=== PATIENT | male | born 1940 | race Caucasian/White ===

== ENCOUNTER 2016-08-30 14:55 | Inpatient (IN) | payer MEDICARE ==
[2016-08-30] VITALS (9 sets, daily range): BP systolic 129–166; BP diastolic 64–95; PULSE 83–97; RESP 18–20; TEMP 97.3–98.4; O2SAT 94–96
[~2016-08-30] VITALS: Ht 175.3 cm; Wt 72.8 kg
[~2016-08-30 14:55] MED LIST: METO50TA PO; PRED20 PO; Z.0.NO CURRENT MEDS
[2016-08-30] MEDS ORDERED: FISH1200 PO (15:27)
[2016-08-30] MEDS ORDERED: METO50TA PO (15:27)
[2016-08-30] MEDS ORDERED: SUDA30TA2 PO (15:27)
[2016-08-30] MEDS ORDERED: AZIT250T3 PO (15:27)
[2016-08-30] MEDS ORDERED: LOVA40TA PO (15:27)
[2016-08-30] MEDS ORDERED: ASPI1TAB69 PO (15:27)
[2016-08-30] MEDS ORDERED: PLAV75TA29 PO (15:27)
[2016-08-30] MEDS ORDERED: PROMSYP6 PO (15:27)
--- NOTE | 2016-08-30 15:54 | PD ---
HPI Chief Complaint: Cold / Flu Symptoms Time Seen by Provider: 15:47 Travel History International Travel<30 days: No Contact w/Intl Traveler<30days: No Traveled to known affect area: No History of Present Illness HPI This 76-year-old male presents with complaint of cough and generalized weakness. He says he been sick since Saturday. He went to see his doctor on that day because of complaint of cough. He was diagnosed with sinusitis and put on Zithromax. He still coughing and is bringing up some phlegm. He has been extremely weak. According to his daughter has not gotten off the couch for a couple of days. He thinks she's been having intermittent fever. He continues to cough and has dyspnea on exertion. He stopped smoking 20 years ago. He has never been diagnosed with COPD or emphysema. He has no history of heart disease. He is on Plavix because he has been found to have a blood clot in his neck by Dr. Rodriguez. He says he had presented with syncope PFSH Past Medical History Arthritis: No Autoimmune Disease: No Blood Disorders: No Cancer: No Cardiovascular Problems: Yes (CLOT IN NECK) High Cholesterol: Yes Chemotherapy: No Cerebrovascular Accident: No Diminished Hearing: No Endocrine: No Genitourinary: Yes Headaches: No Hypertension: Yes Immune Disorder: No Musculoskeletal: No Neurologic: No Psychiatric: No Reproductive: No Respiratory: No Immunizations Current: Yes Migraines: No Radiation Therapy: No Seizures: No Influenza Vaccination: No ?: Not Past Surgical History Abdominal Surgery: No AICD: No Arteriovenous Shunt: No Cardiac Surgery: No Ear Surgery: No Endocrine Surgery: No Eye Surgery: No Genitourinary Surgery: No Gynecologic Surgery: No Insulin Pump: No Oral Surgery: No Pacemaker: No Prostatectomy: Yes (2005) Thoracic Surgery: No Other Surgery: Yes Social History Alcohol Use: Yes (SOCIALLY) Tobacco Use: No Substance Use: No Allergies-Medications (Allergen,Severity, Reaction): Coded Allergies: No Known Allergies (Verified , 08/30/16) Reported Meds & Prescriptions Reported Meds & Active Scripts Active Reported Sudafed (Pseudoephedrine HCl) 30 Mg Tab 30 Mg PO Q6H PRN Promethazine VC-Codeine Liq (Msxaqarda-Qspmkazndicc-Wioamay Liq) 6.25-5-10 mg/ 5Ml Syp 1 Oz PO HS Fish Oil 1200 mg ([address]-3 Fatty Acids) 1 Cap Cap 1,200 Mg PO DAILY Aspirin 81 Mg Tabdr 81 Mg PO DAILY Plavix (Clopidogrel Bisulfate) 75 Mg Tab 75 Mg PO DAILY Lovastatin 40 Mg Tab 40 Mg PO DAILY Metoprolol Tartrate 50 Mg Tab 50 Mg PO BID Review of Systems General / Constitutional: Positive: Fever, Chills Eyes: No: Diploplia, Blurred Vision HENT: No: Headaches, Vertigo Cardiovascular: No: Chest Pain or Discomfort, Palpitations Respiratory: Positive: Cough, Shortness of Breath, No: Hemoptysis Gastrointestinal: No: Vomiting, Diarrhea Genitourinary: No: Urgency, Frequency, Dysuria Musculoskeletal: No: Myalgias, Arthralgias Skin: No Rash, No Itching Neurologic: Positive: Weakness, No: Syncope, Focal Abnormalities Hematologic/Lymphatic: No: Easy Bruising Physical Exam Narrative GENERAL: Well-developed male SKIN: Focused skin assessment warm/dry. HEAD: Atraumatic. Normocephalic. EYES: Pupils equal and round. No scleral icterus. No injection or drainage. ENT: No nasal bleeding or discharge. Mucous membranes pink and moist. NECK: Trachea midline. No JVD. CARDIOVASCULAR: Regular rate and rhythm. No murmur appreciated. RESPIRATORY: No accessory muscle use. He has scattered rhonchi. GASTROINTESTINAL: Abdomen soft, non-tender, nondistended. Hepatic and splenic margins not palpable. MUSCULOSKELETAL: No obvious deformities. No clubbing. No cyanosis. No edema. NEUROLOGICAL: Awake and alert. No obvious cranial nerve deficits. Motor grossly within normal limits. Normal speech. PSYCHIATRIC: Appropriate mood and affect; insight and judgment normal. Data Data Last Documented VS Vital Signs Date Time Temp Pulse Resp B/P Pulse Ox O2 Delivery O2 Flow Rate FiO2 08/30/16 16:19 90 18 166/89 94 Room Air 08/30/16 15:03 97.9 Orders Complete Blood Count With Diff (08/30/16 15:49) Comprehensive Metabolic Panel (08/30/16 15:49) Chest, Pa & Lat (08/30/16 15:49) Blood Culture (08/30/16 16:46) Ct Thorax/ Chest W Iv Contrast (08/30/16 16:46) Levofloxacin 750 Mg Premix Inj (Levaquin (08/30/16 17:00) Admit Order (Ed Use Only) (08/30/16 17:18) Labs Laboratory Tests Test 08/30/16 15:55 White Blood Count 10.8 TH/MM3 Red Blood Count 4.95 MIL/MM3 Hemoglobin 14.2 GM/DL Hematocrit 42.9 % Mean Corpuscular Volume 86.7 FL Mean Corpuscular Hemoglobin 28.7 PG Mean Corpuscular Hemoglobin 33.0 % Concent Red Cell Distribution Width 12.5 % Platelet Count 251 TH/MM3 Mean Platelet Volume 8.0 FL Neutrophils (%) (Auto) 70.3 % Lymphocytes (%) (Auto) 13.4 % Monocytes (%) (Auto) 11.4 % Eosinophils (%) (Auto) 4.2 % Basophils (%) (Auto) 0.7 % Neutrophils # (Auto) 7.6 TH/MM3 Lymphocytes # (Auto) 1.4 TH/MM3 Monocytes # (Auto) 1.2 TH/MM3 Eosinophils # (Auto) 0.5 TH/MM3 Basophils # (Auto) 0.1 TH/MM3 CBC Comment DIFF FINAL Differential Comment Sodium Level 137 MEQ/L Potassium Level 3.8 MEQ/L Chloride Level 100 MEQ/L Carbon Dioxide Level 26.7 MEQ/L Anion Gap 10 MEQ/L Blood Urea Nitrogen 23 MG/DL Creatinine 1.10 MG/DL Estimat Glomerular Filtration 65 ML/MIN Rate Random Glucose 100 MG/DL Calcium Level 9.7 MG/DL Total Bilirubin 0.4 MG/DL Aspartate Amino Transf 22 U/L (AST/SGOT) Alanine Aminotransferase 37 U/L (ALT/SGPT) Alkaline Phosphatase 112 U/L Total Protein 8.1 GM/DL Albumin 3.0 GM/DL [facility] Medical Decision Making Medical Screen Exam Complete: Yes Emergency Medical Condition: Yes Medical Record Reviewed: Yes Differential Diagnosis Differential includes bronchitis, pneumonia, influenza, Narrative Course Chest x-ray shows an area of right-sided consolidation. White count is 10,000. This gentleman has been on antibiotics 4 days without improvement. He has failed outpatient treatment. He will be admitted. CT scan shows moderate- sized area of right lung consolidation with minimal left lung ground glass opacity. There is a 3 cm right lobe thyroid nodule. There are coronary artery calcifications. There is mild to moderate upper lobe emphysema. Blebs are seen Diagnosis Primary Impression: Pneumonia Admitting Information Admitting Physician Requests: Admit Jese Jean MD Aug 30, 2016 15:54
[2016-08-30 16:13] LABS: AUTOMATED NEUTROPHIL # 7.6 TH/MM3 (1.8-7.7); BASOPHIL # 0.1 TH/MM3 (0-0.2); BASOPHIL % 0.7 % (0.0-2.0); EOSINOPHIL # 0.5 TH/MM3 (0-0.4); EOSINOPHIL % 4.2 % (0.0-4.0); HEMATOCRIT 42.9 % (39.0-51.0); LYMPH % 13.4 % (9.0-44.0); LYMPHOCYTE # 1.4 TH/MM3 (1.0-4.8); MEAN CELL VOLUME 86.7 FL (80.0-100.0); MEAN CORPUSCULAR HEMOGLOBIN 28.7 PG (27.0-34.0); MONO % 11.4 % (0.0-8.0); NEUT % 70.3 % (16.0-70.0); PLATELET COUNT 251 TH/MM3 (150-450); RED BLOOD COUNT 4.95 MIL/MM3 (4.50-5.90); RED CELL DISTRIBUTION WIDTH 12.5 % (11.6-17.2); WHITE BLOOD COUNT 10.8 TH/MM3 (4.0-11.0)
--- NOTE | 2016-08-30 16:14 | RADHPO ---
EXAM DATE/TIME: 08/30/2016 15:57 [facility] COMPARISON: No previous studies available for comparison. INDICATIONS : Cough. MEDICAL HISTORY : None. SURGICAL HISTORY : None. ENCOUNTER: Initial ACUITY: 1 week PAIN SCORE: 2/10 LOCATION: Bilateral chest FINDINGS: PA and lateral views of the chest. Confluent right posterior midlung pulmonary parenchymal opacity. L eft lung clear. Cardiomediastinal silhouette within normal limits. No evidence of pleural effusion or pneumothorax. Possible pneumomediastinum in the retrosternal region. CONCLUSION: 1. Superior segment right lower lobe pulmonary consolidation. Recommend radiographic followup to reso lution. 2. Possible pneumomediastinum anteriorly on the lateral view. Red Marinelli MD on August 30, 2016 at 16:09 Board Certified Radiologist. This report was verified electronically.
[2016-08-30 16:21] LABS: CHLORIDE 100 MEQ/L (98-107); POTASSIUM 3.8 MEQ/L (3.5-5.1); SODIUM (NA) 137 MEQ/L (136-145)
[2016-08-30 16:25] LABS: ANION GAP 10 MEQ/L (5-15); BICARBONATE 26.7 MEQ/L (21.0-32.0)
[2016-08-30 16:26] LABS: BLOOD UREA NITROGEN 23 MG/DL (7-18)
[2016-08-30 16:28] LABS: ALT (GPT) 37 U/L (12-78); AST (GOT) 22 U/L (15-37)
[2016-08-30 16:29] LABS: GLOMERULAR FILTRATION RATE 65 ML/MIN (>89)
[2016-08-30 16:30] LABS: TOTAL BILIRUBIN ADULT 0.4 MG/DL (0.2-1.0)
[2016-08-30 16:31] LABS: ALKALINE PHOSPHATASE 112 U/L (45-117)
[2016-08-30 16:39] LABS: HEMO FLAGS DIFF FINAL
[2016-08-30] MEDS ORDERED: LEVOFLOXACIN 750 MG PREMIX INJ 150 ML IV ONE (17:00)
[2016-08-30] MEDS ORDERED: PSEUDOEPHEDRINE HCL 30 MG TAB PO PRN (17:30)
[2016-08-30] MEDS ORDERED: IOHEXOL 350 MG/ML 10 ML VIAL (for RAD DIAG) IV ONE (17:37)
--- NOTE | 2016-08-30 17:40 | HHI.HP ---
HPI Service [facility] Hospitalists Primary Care Physician Brenden Martin MD Admission Diagnosis PNEUMONIA Chief Complaint: cough congestion for 1 week Travel History International Travel<30 Days: No Contact w/Intl Traveler <30 Da: No Traveled to Known Affected Are: No History of Present Illness This 76-year-old male presents with complaint of cough and generalized weakness. He says he been sick since Saturday. He went to see his doctor on that day because of complaint of cough. He was diagnosed with sinusitis and put on Zithromax. He still coughing and is bringing up some phlegm. He has been extremely weak. According to his daughter has not gotten off the couch for a couple of days. He thinks she's been having intermittent fever. He continues to cough and has dyspnea on exertion. He stopped smoking 20 years ago. He has never been diagnosed with COPD or emphysema. He has no history of heart disease. He is on Plavix because he has been found to have a blood clot in his neck by neurology. In er found to have rt sided pneumonia,failed outpatient treatment. Review of Systems Respiratory: COMPLAINS OF: Cough, Sputum production, Shortness of breath Past Family Social History Past Medical History htn,carotid disease Past Surgical History prostate surgery Reported Medications Sudafed (Pseudoephedrine HCl) 30 Mg Tab 30 Mg PO Q6H PRN Promethazine VC-Codeine Liq (Knxyfyusi-Enkrevqsrgln-Rtiqxqn Liq) 6.25-5-10 mg/ 5Ml Syp 1 Oz PO HS Azithromycin 250 Mg Tab 250 Mg PO DIRECTED Take 2 tabs (500 mg) on day 1 then 1 tab daily x 4 days. Fish Oil 1200 mg ([place]-3 Fatty Acids) 1 Cap Cap 1,200 Mg PO DAILY Aspirin 81 Mg Tabdr 81 Mg PO DAILY Plavix (Clopidogrel Bisulfate) 75 Mg Tab 75 Mg PO DAILY Lovastatin 40 Mg Tab 40 Mg PO DAILY Metoprolol Tartrate 50 Mg Tab 50 Mg PO BID Allergies: Coded Allergies: No Known Allergies (Verified , 08/30/16) Social History occasion etoh former smoker over 20 years ago Physical Exam Vital Signs Vital Signs Date Time Temp Pulse Resp B/P Pulse Ox O2 Delivery O2 Flow Rate FiO2 08/30/16 16:19 90 18 166/89 94 Room Air 08/30/16 15:03 97.9 84 18 155/89 94 Physical Exam GENERAL: This is a well-nourished, well-developed patient, in no apparent distress. SKIN: No rashes, ecchymoses or lesions. Cool and dry. HEAD: Atraumatic. Normocephalic. No temporal or scalp tenderness. EYES: Pupils equal round and reactive. Extraocular motions intact. No scleral icterus. No injection or drainage. ENT: Nose without bleeding, purulent drainage or septal hematoma. Throat without erythema, tonsillar hypertrophy or exudate. Uvula midline. Airway patent. NECK: Trachea midline. No JVD or lymphadenopathy. Supple, nontender, no meningeal signs. CARDIOVASCULAR: Regular rate and rhythm without murmurs, gallops, or rubs. RESPIRATORY: Clear to auscultation. Breath sounds decrease rt side. No wheezes, rales, or rhonchi. GASTROINTESTINAL: Abdomen soft, non-tender, nondistended. No hepato-splenomegaly , or palpable masses. No guarding. MUSCULOSKELETAL: Extremities without clubbing, cyanosis, or edema. No joint tenderness, effusion, or edema noted. No calf tenderness. Negative Homans sign bilaterally. NEUROLOGICAL: Awake and alert. Cranial nerves II through XII intact. Motor and sensory grossly within normal limits. Five out of 5 muscle strength in all muscle groups. Normal speech. Laboratory Laboratory Tests Test 08/30/16 15:55 White Blood Count 10.8 Red Blood Count 4.95 Hemoglobin 14.2 Hematocrit 42.9 Mean Corpuscular Volume 86.7 Mean Corpuscular Hemoglobin 28.7 Mean Corpuscular Hemoglobin 33.0 Concent Red Cell Distribution Width 12.5 Platelet Count 251 Mean Platelet Volume 8.0 Neutrophils (%) (Auto) 70.3 Lymphocytes (%) (Auto) 13.4 Monocytes (%) (Auto) 11.4 Eosinophils (%) (Auto) 4.2 Basophils (%) (Auto) 0.7 Neutrophils # (Auto) 7.6 Lymphocytes # (Auto) 1.4 Monocytes # (Auto) 1.2 Eosinophils # (Auto) 0.5 Basophils # (Auto) 0.1 CBC Comment DIFF FINAL Differential Comment Sodium Level 137 Potassium Level 3.8 Chloride Level 100 Carbon Dioxide Level 26.7 Anion Gap 10 Blood Urea Nitrogen 23 Creatinine 1.10 Estimat Glomerular Filtration 65 Rate Random Glucose 100 Calcium Level 9.7 Total Bilirubin 0.4 Aspartate Amino Transf 22 (AST/SGOT) Alanine Aminotransferase 37 (ALT/SGPT) Alkaline Phosphatase 112 Total Protein 8.1 Albumin 3.0 Date/Time Procedure Status Source Growth 08/30/16 16:55 Aerobic Blood Culture Received Blood Peripheral Pending 08/30/16 16:55 Anaerobic Blood Culture Received Blood Peripheral Pending Result Diagram: 08/30/16 1555 08/30/16 1555 Imaging Last 24 hours Impressions Chest X-Ray 08/30/16 1549 Signed Impressions: Service Date/Time: August 15:57 - CONCLUSION: 1. Superior segment right lower lobe pulmonary consolidation. Recommend radiographic followup to resolution. 2. Possible pneumomediastinum anteriorly on the lateral view. Red Marinelli MD Course in er started on levaquin Assessment and Plan Problem List: (1) Pneumonia Status: Acute Plan: continue levaquin IV await CT thorax ?pneumomediastinum Assessment and Plan continue home meds further plan as case progresses Code Status full Discussed Condition With patient Physician Certification 2 Midnight Certification Type: Admission for Inpatient Services Order for Inpatient Services The services are ordered in accordance with Medicare regulations or non- Medicare payer requirements, as applicable. In the case of services not specified as inpatient-only, they are appropriately provided as inpatient services in accordance with the 2-midnight benchmark. Estimated LOS (days): 3 3 days is the estimated time the patient will need to remain in the hospital, assuming treatment plan goals are met and no additional complications. Post-Hospital Plan: Not yet determined Robb Carr MD Aug 30, 2016 17:40
--- NOTE | 2016-08-30 17:43 | RADHPO ---
EXAM DATE/TIME: 08/30/2016 17:04 [facility] COMPARISON: CHEST PA & LAT, August 30, 2016, 15:57. INDICATIONS : Superior segment right lower lobe pulmonary consolidation. IV CONTRAST: 75 cc Omnipaque 350 (iohexol) IV RADIATION DOSE: 9.47 CTDIvol (mGy) MEDICAL HISTORY : Hypertension. SURGICAL HISTORY : None. ENCOUNTER: Initial ACUITY: 1 day PAIN SCALE: 3/10 LOCATION: Bilateral chest TECHNIQUE: Volumetric scanning of the chest was performed. Using automated exposure control and adjustment of t he mA and/or kV according to patient size, radiation dose was kept as low as reasonably achievable to obtain optimal diagnostic quality images. FINDINGS: LUNGS: Moderate-sized area of pulmonary consolidation with air bronchograms in the posterior aspect of the r ight upper lobe. Mild patchy consolidation in the superior segment of the right lower lobe. Minimal g roundglass opacity in the midlung on the left. Mild to moderate upper lobe predominant bilateral pulm onary emphysematous findings. PLEURA: There is no pleural thickening or pleural effusion. MEDIASTINUM: 3.4 cm right lobe inferior pole thyroid nodule. Multiple scattered approximately 1 cm mediastinal lym ph nodes likely reactive. Coronary artery calcifications. Thoracic aorta is calcified but within norm al limits in diameter. AXILLAE: Within normal limits. No lymphadenopathy. SKELETAL: Within normal limits for patient age. MISCELLANEOUS: The visualized upper abdominal organs demonstrate no acute abnormality. CONCLUSION: 1. Moderate-sized area of right lung consolidation. Minimal left lung groundglass opacity. 2. 3 cm right lobe thyroid nodule. 3. Coronary artery calcifications. 4. Mild to moderate upper lobe predominant pulmonary emphysema. Red Marinelli MD on August 30, 2016 at 17:37 Board Certified Radiologist. This report was verified electronically.
[2016-08-30] MEDS ORDERED: SODIUM CHLORIDE 0.9% FLUSH 10 ML FLUSH IV FLUSH PRN (17:45)
[2016-08-30] MEDS ORDERED: NALOXONE HCL 0.4 MG/ML AMP IV PRN (17:45)
[2016-08-30] MEDS ORDERED: BISACODYL 10 MG SUPP RECTAL PRN (17:45)
[2016-08-30] MEDS: METOPROLOL TARTRATE 50 MG TAB PO SCH (21:18)
[2016-08-30] MEDS: PROMETHAZINE/CODEINE 6.25 MG/10 MG/5 ML CUP PO SCH (21:18)
[2016-08-30] MEDS: SODIUM CHLORIDE 0.9% FLUSH 10 ML FLUSH IV FLUSH SCH (21:27)
[2016-08-31] VITALS (8 sets, daily range): BP systolic 115–152; BP diastolic 74–80; PULSE 71–83; RESP 18–20; TEMP 96.9–98.9; O2SAT 91–96
[2016-08-31 07:06] LABS: AUTOMATED NEUTROPHIL # 6.4 TH/MM3 (1.8-7.7); BASOPHIL % 0.3 % (0.0-2.0); EOSINOPHIL # 0.4 TH/MM3 (0-0.4); EOSINOPHIL % 3.8 % (0.0-4.0); HEMATOCRIT 41.3 % (39.0-51.0); HEMO FLAGS DIFF FINAL; LYMPH % 14.9 % (9.0-44.0); LYMPHOCYTE # 1.4 TH/MM3 (1.0-4.8); MEAN CELL VOLUME 87.6 FL (80.0-100.0); MEAN CORPUSCULAR HEMOGLOBIN 29.2 PG (27.0-34.0); MEAN CORPUSCULAR HGB CONC 33.3 % (32.0-36.0); MONO % 12.3 % (0.0-8.0); NEUT % 68.7 % (16.0-70.0); PLATELET COUNT 246 TH/MM3 (150-450); RED BLOOD COUNT 4.71 MIL/MM3 (4.50-5.90); RED CELL DISTRIBUTION WIDTH 12.2 % (11.6-17.2); WHITE BLOOD COUNT 9.3 TH/MM3 (4.0-11.0)
[2016-08-31] MEDS: SODIUM CHLORIDE 0.9% FLUSH 10 ML FLUSH IV FLUSH SCH ×2 (09:00→20:38)
[2016-08-31] MEDS: CLOPIDOGREL 75 MG TAB PO SCH (09:04)
[2016-08-31] MEDS: ASPIRIN EC 81 MG TABEC PO SCH (09:04)
[2016-08-31] MEDS: PRAVASTATIN SOD 40 MG TAB PO SCH (09:04)
[2016-08-31] MEDS: METOPROLOL TARTRATE 50 MG TAB PO SCH ×2 (09:04→20:38)
--- NOTE | 2016-08-31 10:37 | HHI.PR ---
Subjective Remarks Patient admitted with rt sided pneumonia with cough and congestion had some SOB with ambulation ,on CT thorax showed moderate rt sided pneumonia and emphysema . I will consult pulmonary for evaluation PFT at this time may not be accurate due to his pneumonia . Patient is on levaquin and i will start some nebulizer treatment as well . Objective Vitals GENERAL: SKIN: Warm and dry. HEAD: Atraumatic. Normocephalic. EYES: Pupils equal and round. No scleral icterus. No injection or drainage. ENT: No nasal bleeding or discharge. Mucous membranes pink and moist. NECK: Trachea midline. No JVD. CARDIOVASCULAR: Regular rate and rhythm. RESPIRATORY: No accessory muscle use. Decrease breath sounds rt side GASTROINTESTINAL: Abdomen soft, non-tender, nondistended. Hepatic and splenic margins not palpable. MUSCULOSKELETAL: Extremities without clubbing, cyanosis, or edema. No obvious deformities. NEUROLOGICAL: Awake and alert. No obvious cranial nerve deficits. Motor grossly within normal limits. Five out of 5 muscle strength in the arms and legs. Normal speech. PSYCHIATRIC: Appropriate mood and affect; insight and judgment normal. Vital Signs Date Time Temp Pulse Resp B/P Pulse Ox O2 Delivery O2 Flow Rate FiO2 08/31/16 08:03 96.9 81 20 145/76 93 08/31/16 08:00 92 21 08/31/16 04:00 97.4 71 18 132/74 96 08/31/16 00:00 98.1 71 18 117/75 96 08/30/16 22:18 97.3 83 18 158/90 96 08/30/16 22:06 98.4 84 18 137/67 94 Room Air 08/30/16 21:15 89 20 148/76 94 Room Air 08/30/16 19:36 95 08/30/16 19:00 18 95 Room Air 08/30/16 19:00 97.5 95 18 147/78 95 Room Air 08/30/16 18:29 86 18 129/64 95 Room Air 08/30/16 18:08 97 18 158/95 95 Room Air 08/30/16 16:19 90 18 166/89 94 Room Air 08/30/16 15:03 97.9 84 18 155/89 94 08/30/16 08/30/16 08/31/16 15:00 23:00 07:00 Intake Total 360 ml 240 ml Output Total 400 ml Balance 360 ml -160 ml Intake Oral 360 ml 240 ml Output Urine Total 400 ml # Bowel Movements 0 Result Diagram: 08/31/16 0555 08/30/16 1555 Imaging Last [address] 08/30/16 1646 Signed Impressions: Service Date/Time: August 17:04 - CONCLUSION: 1. Moderate-sized area of right lung consolidation. Minimal left lung groundglass opacity. 2. 3 cm right lobe thyroid nodule. 3. Coronary artery calcifications. 4. Mild to moderate upper lobe predominant pulmonary emphysema. Red Marinelli MD Chest X-Ray 08/30/16 1549 Signed Impressions: Service Date/Time: August 15:57 - CONCLUSION: 1. Superior segment right lower lobe pulmonary consolidation. Recommend radiographic followup to resolution. 2. Possible pneumomediastinum anteriorly on the lateral view. Red Marinelli MD Last 24 hours Impressions Chest X-Ray 08/30/16 1549 Signed Impressions: Service Date/Time: August 15:57 - CONCLUSION: 1. Superior segment right lower lobe pulmonary consolidation. Recommend radiographic followup to resolution. 2. Possible pneumomediastinum anteriorly on the lateral view. Red Marinelli MD A/P Problem List: (1) Pneumonia Status: Acute Plan: continue levaquin IV await CT thorax showed pulmonary emphysema will get pulmonary evaluation (2) Emphysema of lung Status: Chronic Plan: as per CT thorax will get pulmonary evaluation and start nebulizer treatment Assessment and Plan as above hopefully discharge tomorrow or saturday Robb Carr MD Aug 31, 2016 10:37
[2016-08-31] MEDS: RESP: ALBUTEROL 2.5 MG/IPRATROPIUM 0.5 MG NEB (SCH) NEB (15:52)
[2016-08-31] MEDS ORDERED: LEVOFLOXACIN 500 MG PREMIX INJ 100 ML IV SCH (17:00)
--- NOTE | 2016-08-31 19:16 | MB ---
cc: ADA MCCARTHY DATE OF CONSULTATION 08/31/[address] Robb Carr REASON FOR CONSULTATION Evaluate pneumonia and emphysema. HISTORY OF PRESENT ILLNESS Mr. Cardona is a pleasant 76-year-old male with history of hypertension, history of CA of the prostate status post surgery. The patient came to the hospital with 1 1/2 weeks of worsening of his shortness of breath, cough and congestion, small amount of sputum production. He saw Dr. Martin and was given Zithromax for sinusitis. He did not get better, was feeling very weak and was sent to the hospital. He had a workup done. He had a CT scan of the chest done which shows moderate sized area of the right lung consolidation, has small ground-glass infiltrate, also a thyroid nodule and moderate upper lobe predominant pulmonary emphysema. His CBC showed WBC count 9.3, hemoglobin 13.7, hematocrit 41.3, MCV 87, platelet count 246. His sodium 137, potassium 3.8, chloride 100, CO2 26, BUN 23, creatinine 1.10. PAST MEDICAL HISTORY 1. History of CA of the prostate status post surgery, 2. Hypertension, 3. Carotid artery disease. MEDICATIONS 1. Levaquin 500 mg a day. 2. Albuterol/Atrovent nebulizer treatment 3. Aspirin 81 mg a day 4. Plavix 75 mg a day, 5. Pravachol 80 mg a day ALLERGIES NO KNOWN DRUG ALLERGIES. SOCIAL HISTORY He has no history of smoking or alcohol use. He used to smoke a long time ago which he quit. He worked as a truck farmer. Drinks socially. FAMILY HISTORY He has three children. REVIEW OF SYSTEMS Normally he is up around and active. Weight is stable. No DVT or pulmonary embolism. No seizure, stroke or epilepsy. PHYSICAL EXAMINATION GENERAL: A well-built, well-nourished elderly male not in acute distress. VITAL SIGNS: Blood pressure 152/80, heart rate 17, respirations 20, temperature 97.9. HEENT: Pupils are equal and reactive to light. Oral mucosa and nasal mucosa normal. NECK: Supple. JVP not raised. CHEST: Air entry bilateral. He has few rales on the right side. CARDIOVASCULAR: S1, S2 normal. ABDOMEN: Benign. IMPRESSION 1. Right lung pneumonia 2. Emphysema 3. Hypertension 4. History of CA of the prostate PLAN Clinically he is stable. We will continue his antibiotic, aerosol treatment with albuterol and Atrovent. Check his pulmonary function study. He will need a repeat radiology study as outpatient in the next 3-4 weeks to make sure the lung infiltrate have cleared. I will follow this patient as an outpatient. He is stable from pulmonary standpoint. Thank you, Dr. Carr, for this consultation. MD JAZMIN Montaño/ /5:51 PM /6:46 PM RUPERT
[2016-08-31] MEDS: PROMETHAZINE/CODEINE 6.25 MG/10 MG/5 ML CUP PO SCH (20:37)
[2016-09-01 00:16] VITALS: BP 137/93; PULSE 79; RESP 18; TEMP 98.4; O2SAT 91
[2016-09-01 06:54] LABS: BASOPHIL # 0.1 TH/MM3 (0-0.2); BASOPHIL % 1.1 % (0.0-2.0); EOSINOPHIL # 0.3 TH/MM3 (0-0.4); EOSINOPHIL % 3.5 % (0.0-4.0); HEMATOCRIT 40.2 % (39.0-51.0); HEMO FLAGS DIFF FINAL; LYMPH % 11.4 % (9.0-44.0); LYMPHOCYTE # 1.1 TH/MM3 (1.0-4.8); MEAN CELL VOLUME 87.2 FL (80.0-100.0); MEAN CORPUSCULAR HEMOGLOBIN 29.8 PG (27.0-34.0); MEAN CORPUSCULAR HGB CONC 34.2 % (32.0-36.0); PLATELET COUNT 238 TH/MM3 (150-450); RED BLOOD COUNT 4.61 MIL/MM3 (4.50-5.90); RED CELL DISTRIBUTION WIDTH 12.3 % (11.6-17.2); WHITE BLOOD COUNT 9.4 TH/MM3 (4.0-11.0)
[2016-09-01] MEDS: RESP: ALBUTEROL 2.5 MG/IPRATROPIUM 0.5 MG NEB (SCH) NEB (07:40)
[2016-09-01 07:43] VITALS: O2SAT 92
[2016-09-01 08:00] VITALS: BP 141/75; PULSE 88; RESP 20; TEMP 97.9; O2SAT 91
[2016-09-01] MEDS: SODIUM CHLORIDE 0.9% FLUSH 10 ML FLUSH IV FLUSH SCH (09:00)
[2016-09-01] MEDS: METOPROLOL TARTRATE 50 MG TAB PO SCH (09:08)
[2016-09-01] MEDS: CLOPIDOGREL 75 MG TAB PO SCH (09:08)
[2016-09-01] MEDS: ASPIRIN EC 81 MG TABEC PO SCH (09:09)
[2016-09-01] MEDS: PRAVASTATIN SOD 40 MG TAB PO SCH (09:09)
--- NOTE | 2016-09-01 11:52 | HHI.PR ---
Subjective Remarks Still some cough. Nebulizer helps his breathing. Walking halls. Objective Vitals Vital Signs Date Time Temp Pulse Resp B/P Pulse Ox O2 Delivery O2 Flow Rate FiO2 09/01/16 08:00 97.9 88 20 141/75 91 09/01/16 07:43 92 21 09/01/16 00:16 98.4 79 18 137/93 91 08/31/16 20:21 98.9 83 18 136/77 91 08/31/16 20:04 93 21 08/31/16 16:00 97.9 79 20 152/80 92 08/31/16 12:00 97.7 72 20 115/76 92 08/31/16 08/31/16 09/01/16 15:00 23:00 07:00 Intake Total 660 ml Balance 660 ml Intake Oral 660 ml # Voids 2 1 1 Result Diagram: 09/01/16 0643 08/30/16 1555 Imaging Last [address] 08/30/16 1646 Signed Impressions: Service Date/Time: August 17:04 - CONCLUSION: 1. Moderate-sized area of right lung consolidation. Minimal left lung groundglass opacity. 2. 3 cm right lobe thyroid nodule. 3. Coronary artery calcifications. 4. Mild to moderate upper lobe predominant pulmonary emphysema. Red Marinelli MD Chest X-Ray 08/30/16 1549 Signed Impressions: Service Date/Time: August 15:57 - CONCLUSION: 1. Superior segment right lower lobe pulmonary consolidation. Recommend radiographic followup to resolution. 2. Possible pneumomediastinum anteriorly on the lateral view. Red Marinelli MD Last 24 hours Impressions Chest X-Ray 08/30/16 1549 Signed Impressions: Service Date/Time: August 15:57 - CONCLUSION: 1. Superior segment right lower lobe pulmonary consolidation. Recommend radiographic followup to resolution. 2. Possible pneumomediastinum anteriorly on the lateral view. Red Marinelli MD A/P Problem List: (1) Pneumonia Status: Acute Plan: Seen by Dr Prater who stated he was stable on current regimen. Will see him as an outpatient.Will discharge on levaquin po and nebulizer. check walk test (2) Emphysema of lung Status: Chronic Plan: Discharge on nebulizers, further medication adjustments per Dr Prater at f /u appt. Patient states Dr Martin gave him and inhlaler but doesnt know what it is. Assessment and Plan as above discharge today Machelle Bowser MD Sep 01, 2016 11:52
[2016-09-01 12:00] VITALS: BP 124/78; PULSE 81; RESP 18; TEMP 97.3; O2SAT 91
[2016-09-01] MEDS ORDERED: NEBULIZER1 MI1 (12:22)
[2016-09-01] MEDS ORDERED: IPRA0.02 NEB (12:22)
[2016-09-01] MEDS ORDERED: LEVA500T PO (12:22)
[2016-09-01] MEDS ORDERED: ALBU.5I NEB (12:22)
[2016-09-01] MEDS ORDERED: LEVOFLOXACIN 500 MG TAB PO SCH (17:00)
== END 2016-09-01 13:55 | disposition home or self-care (01) | DRG 195 ==
LOC: PHED 14:55 → PHEDA 17:19 → PH3B 22:18
PROVIDERS: ADMIT Internal Medicine; ATTEND Internal Medicine
DX: J18.9 Pneumonia, unspecified organism (principal); J43.9 Emphysema, unspecified; I10 Essential (primary) hypertension; Z87.891 Personal history of nicotine dependence; Z79.02 Long term (current) use of antithrombotics/antiplatelets; Z79.82 Long term (current) use of aspirin; Z85.46 Personal history of malignant neoplasm of prostate; E78.00 Pure hypercholesterolemia, unspecified; E04.1 Nontoxic single thyroid nodule
CPT/HCPCS: 71020; 71260; 80053; 85025; 87040; 94620; 94640; 94664; 96365; J1956; Q9967